=== PATIENT | female | born 1995 | race Caucasian/White ===

== ENCOUNTER 2016-04-18 17:12 | Emergency (ER) | payer BC ==
[~2016-04-18] VITALS: Wt 73.1 kg
--- NOTE | 2016-04-18 17:58 | ERD ---
ER Documentation Chief Complaint Date/Time DATE: 04/18/16 TIME: 17:56 Chief Complaint VAG BLEEDING X2 DAYS, PT 7 WKS PG, A0 HPI Patient is a 21 year old female who is with a LNMP 02/16/17. Patient states that she light spotting and low lower pelvic pain for 2 days. She states that she is not using a pad at this time. Denies fever or chills. Denies abdominal pain, nausea, vomiting or diarrhea. Denies constipation. Denies chest pain, shortness of breath or difficulty breathing. Denies leg pain or swelling. Denies recent surgeries ROS All systems reviewed and are negative except as per history of present illness. PMhx/Soc Medical and Surgical Hx: pt denies Medical Hx, pt denies Surgical Hx History of Surgery: No Anesthesia Reaction: No Hx Neurological Disorder: No Hx Respiratory Disorders: No Hx Cardiac Disorders: No Hx Psychiatric Problems: No Hx Miscellaneous Medical Probl: No Hx Alcohol Use: No Hx Substance Use: No Hx Tobacco Use: No Smoking Status: Never smoker Physical Exam Vitals Vital Signs Date Time Temp Pulse Resp B/P Pulse Ox O2 Delivery O2 Flow Rate FiO2 04/18/16 17:14 97.9 72 18 125/71 99 Physical Exam GENERAL: Well-developed, well-nourished female. Appears in no acute distress. HEAD: Normocephalic, atraumatic. EYES: Pupils are equally reactive bilaterally. EOMs grossly intact. No conjunctival erythema. ENT: Moist mucous membranes. No uvula deviation. No kissing tonsils. No exudates. NECK: Supple. No lymphadenopathy or thyromegaly. No meningismus. negative kernig. negative brudinski. LUNG: Clear to auscultation bilaterally. No rhonchi, wheezing, rales or coarse breath sounds. HEART: Regular rate and rhythm. No murmurs, rubs or gallops. ABDOMEN: No scars, ecchymosis or rashes noted. Soft, nontender, and nondistended. Positive bowel sounds in all four quadrants. No rebound tenderness , no guarding. (-) McBurneys point tenderness. No CVA tenderness. BACK: No midline tenderness. Extremities: Equal pulses bilaterally. No peripheral clubbing, cyanosis or edema. No unilateral leg swelling. NEUROLOGIC: Alert and oriented. Moving all four extremities. 5/5 strength in all extremities. Normal speech. Steady gait. SKIN: Normal color. Warm and dry. No rashes or lesions. Capillary refill < 2 seconds Result Diagram: 04/18/16 9177 Results 24 hrs Laboratory Tests Test 04/18/16 17:57 Basophils # 0.110^3/ul Basophils % 0.4% Beta HCG, Quantitative 79388.0mIU/ml Eosinophils # 0.210^3/ul Eosinophils % 1.5% Hematocrit 40.0% Hemoglobin 13.6g/dl Lymphocytes # 3.110^3/ul Lymphocytes % 26.0% Mean Corpuscular Hemoglobin 29.9pg Mean Corpuscular Hemoglobin Concent 34.1g/dl Mean Corpuscular Volume 87.7fl Mean Platelet Volume 8.7fl Monocytes # 0.710^3/ul Monocytes % 6.1% Neutrophils # 7.810^3/ul Neutrophils % 66.0% Nucleated Red Blood Cells # 0.010^3/ul Nucleated Red Blood Cells % 0.0/100WBC Platelet Count 18392^3/UL Red Blood Count 4.5610^6/ul Red Cell Distribution Width 12.9% Urine Bilirubin NEGATIVE Urine Clarity CLEAR Urine Color LT. YELLOW Urine Glucose NEGATIVE% Urine Hemoglobin 3+ Urine Ketones NEGATIVE Urine Leukocyte Esterase NEGATIVE Urine Microscopic RBC 2-5/HPF Urine Microscopic WBC 2-5/HPF Urine Nitrite NEGATIVE Urine Specific [place] <=1.005 Urine Squamous Epithelial Cells FEW Urine Total Protein NEGATIVE Urine Urobilinogen 0.2 E.U./dL Urine pH 5.5 White Blood Count 11.810^3/ul Procedures/MDM ER COURSE: I kept the patient and/or family informed of laboratory and diagnostic imaging results throughout the emergency room course. EKG, MONITORS, & DIAGNOSTIC IMAGING: [place] [id number] Radiology Main Line: [phone] DIAGNOSTIC IMAGING REPORT Patient: MISTY BRAN : 1995 Age: 21 Sex: F MR #: [id number] DOS: 04/18/16 1729 Ordering MD: ANABEL LOPEZ PA-C Location: [facility] Room/Bed: PROCEDURE: US OB. CLINICAL INDICATION: Vaginal the bleeding and TECHNIQUE: Transabdominal and transvaginal views of the pelvis are available for review. COMPARISON: No prior studies are available for comparison. FINDINGS: Intrauterine gestational sac, yolk sac and pole are noted with the following information: [place]-rump length: 0.36 cm heart rate: 97 bpm Gestational sac: 1.71 cm Ultrasound estimated gestational age: 6 weeks Percent of hypoechoic area measuring 1.2 cm is most consistent with a subchorionic hemorrhage. Corpus luteum cyst of in the right ovary is present and approximately 1.4 cm. Right ovarian size overall is measured at for 1 x 2 per a 6 x 1.7 cm. The left ovary is not visualized. There is no free fluid. RPTAT:HJJR IMPRESSION: 1. Single viable intrauterine with a measured gestational age of 6 weeks, the estimated date of delivery 12/12/2016. 2. Subchorionic hemorrhage of approximately 1.2 cm. 3. Corpus luteum cyst of the right ovary. Physician Ольга Date Time Electronically viewed and signed by Buddy Amaro Physician on 04/18/2016 19:13 JR/ CC: ANABEL LOPEZ PA-C LAB INTERPRETATION: CBC showed no evidence of systemic infection or severe anemia. UA showed no evidence of leukocytes, nitrites, shows 3+ hemoglobin Rh: A+ BHC.0 MEDICAL DECISION MAKING: This is a 21-year-old female who is who presents with vaginal bleeding and pelvic pain. Vital signs were reviewed. Patient is afebrile. Patient is not hypoxic. Patient is not toxic or ill-appearing. Patient likely has threatened . Low suspicion for ectopic , , molar , endometriosis, PID, cervicitis, septic , molar , HELLP syndrome , preeclampsia, eclampsia, placenta previa, placenta abruptia. Low suspicion for ovarian torsion, PID, tuboovarian abscess, ectopic , bowel obstruction, pyelonephritis, UTI, appendicitis, cervicitis, septic , molar , HELLP syndrome, preeclampsia, eclampsia, placenta previa, placenta abruptia. Her slightly elevated white count is likely due to . DISCHARGE: At this time, patient is stable for discharge and outpatient management with no new complaints during the ER course. Patient was sent home with rest and to follow-up with OB. Copy of labs and ultrasound was given to patient. Names of OB doctors in the area was also given to patient. Patient will be discharged home with instructions to recheck for new or worsening symptoms such as fever, nausea, weakness, LOC and to follow up with primary care in the next 1-2 days. Patient was advised to return to the ER for any new or worsening symptoms. Plan was discussed and patient and/or family understands and agrees. Home instructions were given. Departure Diagnosis: Primary Impression: Vaginal bleeding in patient at less than 20 weeks gestation Condition: Stable ANABEL LOPEZ PA-C Apr 18, 2016 17:58
[2016-04-18 18:12] LABS: BASOPHIL # 0.1 10^3/ul (0.0-0.1); BASOPHILS % 0.4 % (0.0-2.0); EOSINOPHILS # 0.2 10^3/ul (0.0-0.5); EOSINOPHILS % 1.5 % (0.0-7.0); HEMOGLOBIN 13.6 g/dl (12.0-16.0); LYMPHOCYTES # 3.1 10^3/ul (0.8-2.9); MEAN CORPUSCULAR HEMOGLOBIN 29.9 pg (29.0-33.0); MEAN CORPUSCULAR HGB CONC 34.1 g/dl (32.0-37.0); MEAN CORPUSCULAR VOLUME 87.7 fl (82.0-101.0); MEAN PLATELET VOLUME 8.7 fl (7.4-10.4); MONOCYTE # 0.7 10^3/ul (0.3-0.9); MONOCYTES % 6.1 % (0.0-11.0); NEUTROPHIL # 7.8 10^3/ul (1.6-7.5); PLATELET COUNT 288 10^3/UL (140-440); RED BLOOD COUNT 4.56 10^6/ul (4.20-5.40); RED CELL DISTRIBUTION WIDTH 12.9 % (11.5-14.5); UNCORRECTED WBC 11.8 10^3/ul (4.8-10.8); WHITE BLOOD COUNT 11.8 10^3/ul (4.8-10.8)
[2016-04-18 18:13] LABS: ADD UMIC YES; URINE BILIRUBIN (Dip) NEGATIVE (NEGATIVE); URINE BLOOD (Dip) 3+ (NEGATIVE); URINE COLOR LT. YELLOW (YELLOW); URINE GLUCOSE (Dip) NEGATIVE (NEGATIVE); URINE KETONES (Dip) NEGATIVE (NEGATIVE); URINE LEUKOCYTE ESTERASE (Dip) NEGATIVE (NEGATIVE); URINE NITRITE (Dip) NEGATIVE (NEGATIVE); URINE TOTAL PROTEIN (Dip) NEGATIVE (NEGATIVE); URINE UROBILINOGEN (Dip) 0.2 E.U./dL (0.1-1.0)
[2016-04-18 18:15] LABS: CONDITION 1
[2016-04-18 18:30] LABS: SQUAMOUS EPITHELIAL CELL,UR FEW
--- NOTE | 2016-04-18 19:13 | RADRPT ---
PROCEDURE: US OB. CLINICAL INDICATION: Vaginal the bleeding and TECHNIQUE: Transabdominal and transvaginal views of the pelvis are available for review. COMPARISON: No prior studies are available for comparison. FINDINGS: Intrauterine gestational sac, yolk sac and pole are noted with the following information: [place]-rump length:0.36 cm heart rate:97 bpm Gestational sac:1.71 cm Ultrasound estimated gestational age:6 weeks Percent of hypoechoic area measuring 1.2 cm is most consistent with a subchorionic hemorrhage. Corpus luteum cyst of in the right ovary is present and approximately 1.4 cm. Right ovari an size overall is measured at for 1 x 2 per a 6 x 1.7 cm. The left ovary is not visualized. There is no free fluid. RPTAT:HJJR IMPRESSION: 1. Single viable intrauterine with a measured gestational age of 6 weeks, the estimated d ate of delivery 12/12/2016. 2. Subchorionic hemorrhage of approximately 1.2 cm. 3. Corpus luteum cyst of the right ovary. Physician Ольга Date Time Electronically viewed and signed by Physician Ольга on 04/18/2016 19:13 /
== END 2016-04-18 19:36 | disposition home or self-care (01) ==
LOC: FTE 17:12
DX: O20.9 Hemorrhage in early pregnancy, unspecified (principal); R10.2 Pelvic and perineal pain; Z3A.01 Less than 8 weeks gestation of pregnancy
CPT/HCPCS: 36415; 76801; 76817; 81001; 81003; 84702; 85025; 86900; 86901

== ENCOUNTER 2016-04-19 20:23 | Day surgery (SDC) | payer BC ==
[~2016-04-19] VITALS: Ht 160 cm; Wt 73.6 kg
[2016-04-19 20:32] VITALS: Ht 160 cm; Wt 73.6 kg
[2016-04-19] MEDS ORDERED: ACETAMINOPHEN 500 MG TAB PO STA (21:23)
--- NOTE | 2016-04-19 21:36 | ERD ---
ER Documentation Chief Complaint Date/Time DATE: 04/19/16 TIME: 21:32 Chief Complaint vaginal bleeding/abd pain x 4 days, states 7 weeks HPI This is a 21-year-old female who presents to the emergency department today for vaginal bleeding and crampy lower abdominal pain. Patient states she is approximately 7 weeks . Patient states she was seen here yesterday and came back today because her bleeding was heavier and she was told to come back if she had heavier bleeding. She has not taken any Tylenol for the pain. Denies any fevers or chills, nausea or vomiting. ROS All systems reviewed and are negative except as per history of present illness. Allergies Allergies: Coded Allergies: No Known Drug Allergies (Verified Allergy, Unknown, 04/19/16) PMhx/Soc Medical and Surgical Hx: pt denies Medical Hx, pt denies Surgical Hx History of Surgery: No Anesthesia Reaction: No Hx Neurological Disorder: No Hx Respiratory Disorders: No Hx Cardiac Disorders: No Hx Psychiatric Problems: No Hx Miscellaneous Medical Probl: No Hx Alcohol Use: No Hx Substance Use: No Hx Tobacco Use: No Smoking Status: Never smoker Physical Exam Vitals Vital Signs Date Time Temp Pulse Resp B/P Pulse Ox O2 Delivery O2 Flow Rate FiO2 04/19/16 20:32 98.7 78 20 124/72 100 Physical Exam Const: No acute distress Head: Atraumatic Eyes: Normal Conjunctiva ENT: Normal External Ears, Nose and Mouth. Neck: Full range of motion..~ No meningismus. Resp: Clear to auscultation bilaterally Cardio: Regular rate and rhythm, no murmurs Abd: Soft, suprapubic tenderness., non distended. Normal bowel sounds no right lower quadrant pain. No tenderness at McBurney's. No left lower quadrant pain. Skin: No petechiae or rashes Neur: Awake and alert Psych: Normal Mood and Affect Result Diagram: 04/19/16214804/19/162148 Results 24 hrs Laboratory Tests Test 04/19/16 21:49 Alanine Aminotransferase (ALT/SGPT) 18IU/L Albumin 4.4g/dl Albumin/Globulin Ratio 1.41 Alkaline Phosphatase 58IU/L Anion Gap 17 Aspartate Amino Transf (AST/SGOT) 20IU/L Basophils # 0.010^3/ul Basophils % 0.3% Beta HCG, Quantitative 52628.0mIU/ml Blood Urea Nitrogen 12mg/dl Calcium Level 9.1mg/dl Carbon Dioxide Level 27mmol/L Chloride Level 103mmol/L Creatinine 0.60mg/dl Direct Bilirubin 0.00mg/dl Eosinophils # 0.110^3/ul Eosinophils % 1.0% Globulin 3.10g/dl Glucose Level 115mg/dl Hematocrit 39.1% Hemoglobin 13.2g/dl Indirect Bilirubin 0.0mg/dl Lymphocytes # 2.810^3/ul Lymphocytes % 20.0% Mean Corpuscular Hemoglobin 29.8pg Mean Corpuscular Hemoglobin Concent 33.8g/dl Mean Corpuscular Volume 88.1fl Mean Platelet Volume 8.5fl Monocytes # 0.910^3/ul Monocytes % 6.2% Neutrophils # 10.010^3/ul Neutrophils % 72.5% Nucleated Red Blood Cells # 0.010^3/ul Nucleated Red Blood Cells % 0.0/100WBC Platelet Count 13663^3/UL Potassium Level 4.2mmol/L Red Blood Count 4.4310^6/ul Red Cell Distribution Width 12.5% Sodium Level 143mmol/L Total Bilirubin 0.0mg/dl Total Protein 7.5g/dl White Blood Count 13.810^3/ul Current Medications Medications (Trade) Dose Ordered Sig/Chrissie Route PRN Reason Start Time Stop Time Status Last Admin Dose Admin Acetaminophen (Tylenol Tab) 500 mg ONCE STAT PO 04/19/16 21:23 04/19/16 21:25 DC 04/19/16 22:16 Cefazolin Sodium (Ancef) 2 gm ONCE ONCE IV 04/20/16 00:00 04/20/16 00:01 DC 04/20/16 00:40 Procedures/MDM This is a 21-year-old female who presents to the emergency department today for vaginal bleeding. Patient indicates she is a proximal 7 weeks . Patient was seen here yesterday in the emergency department and had a full OB workup at that time. His laboratory work at that time showed a mildly elevated white blood cell count. Her UA was negative for infection. Her ultrasound showed an intrauterine gestational sac yolk sac and pole. There is no free fluid. There was a corpus luteum cyst in the right ovary. Patient had a hypoechoic area measuring 1.2 cm consistent with a subchorionic hemorrhage. Patient's beta quant was 07897.0. Her Rh status was A positive. Patient continued to have a significant amount of vaginal bleeding and therefore the laborist was called. Dr. Burks saw and evaluated the patient and did a pelvic exam. Patient cervix was open and a clot was removed Laboratory work showed a mildly elevated white blood cell count. Her platelets are within normal limits. She is not anemic. Her hemoglobin and hematocrit are stable at this time. Electrolytes are within normal limits. Glucose is low [place] [address] Patient is Rh+ and there is no indication for RhoGam at this time. Patient's quant is decreasing from yesterday this is concerning for a failed . I did order an ultrasound after the patient was evaluated by Dr. Burks. Ultrasound shows a gestational sac is no longer identified raising suspicion for missed . There is thickened endometrium with apparent internal vascularity raise suspicion for retained products of conception. There is no adnexal mass or free fluid. Patient was given Tylenol here in the emergency department. Packed red blood cells were ordered for the patient. Dr. Burks discussed with the patient and her family doing a D&C here in the emergency department given the amount that she was bleeding versus outpatient therapy and patient has requested a D&C here in the emergency room. Patient was given 2 g of Ancef. I have also ordered packed red blood cells. Consent was obtained. Patient will go to the OR. I discussed the patient with Dr. Wheatley and he is in understanding of the plan. . Departure Diagnosis: Primary Impression: Missed Condition: SHONA Omer PA-C Apr 19, 2016 21:36
[2016-04-19 22:47] LABS: BASOPHILS % 0.3 % (0.0-2.0); EOSINOPHILS # 0.1 10^3/ul (0.0-0.5); HEMATOCRIT 39.1 % (37.0-47.0); HEMOGLOBIN 13.2 g/dl (12.0-16.0); LYMPHOCYTES # 2.8 10^3/ul (0.8-2.9); MEAN CORPUSCULAR HEMOGLOBIN 29.8 pg (29.0-33.0); MEAN CORPUSCULAR HGB CONC 33.8 g/dl (32.0-37.0); MEAN CORPUSCULAR VOLUME 88.1 fl (82.0-101.0); MEAN PLATELET VOLUME 8.5 fl (7.4-10.4); MONOCYTE # 0.9 10^3/ul (0.3-0.9); MONOCYTES % 6.2 % (0.0-11.0); NEUTROPHILS % 72.5 % (39.0-77.0); PLATELET COUNT 280 10^3/UL (140-440); RED BLOOD COUNT 4.43 10^6/ul (4.20-5.40); RED CELL DISTRIBUTION WIDTH 12.5 % (11.5-14.5); UNCORRECTED WBC 13.8 10^3/ul (4.8-10.8); WHITE BLOOD COUNT 13.8 10^3/ul (4.8-10.8)
[2016-04-19 22:53] LABS: ALBUMIN 4.4 g/dl (3.3-4.9)
[2016-04-19 22:54] LABS: POTASSIUM 4.2 mmol/L (3.5-5.1)
[2016-04-19 22:55] LABS: CONDITION 1
[2016-04-19 22:56] LABS: ALBUMIN/GLOBULIN RATIO 1.41; CREATININE 0.6 mg/dl (0.44-1.00); TOTAL PROTEIN 7.5 g/dl (6.1-8.1)
[2016-04-19 22:57] LABS: CALCIUM 9.1 mg/dl (8.4-10.2)
[2016-04-20] VITALS (12 sets, daily range): BP systolic 104–120; BP diastolic 51–66; PULSE 70–86; RESP 11–23
[2016-04-20] MEDS ORDERED: CEFAZOLIN 1 GM INJ IV ONE
--- NOTE | 2016-04-20 00:26 | RADRPT ---
PROCEDURE: Ultrasound pelvis CLINICAL INDICATION: Vaginal Bleed () TECHNIQUE: Multiple bledsoe scale and color Doppler images of the pelvis were obtained transabdominal ly and transvaginally. Images were reviewed PACS workstation COMPARISON: None FINDINGS: The uterus is identified, measuring 8.0 x 3.9 x 5.0 cm. The endometrial canal appears thickened, me asuring 17 mm . There is apparent flow within the endometrial contents seen on a few images. The right ovary measures 3.7 x 1.7 x 2.6 cm. The left ovary is not well seen. There is unremarkabl e right ovary echotexture with maintained vascular flow. There is no evidence of free fluid. There is no abnormal adnexal mass. IMPRESSION: 1. A gestational sac is no longer identified, raising suspicion for missed . Correlation w ith serial beta HcG levels recommended. 2. Thickened endometrium, with apparent internal vascularity, raising suspicion for retained produc ts of conception. 3. No adnexal mass or free fluid. RPTAT: HBST .Benjamin Esparza MD, MD Date Time Electronically viewed and signed by .Benjamin Esparza MD, on 04/20/2016 00:26 .T/
[2016-04-20] MEDS ORDERED: FENTAnyl 50 MCG/ML VIAL IV PRN ×3 (02:30)
[2016-04-20] MEDS ORDERED: METOCLOPRAMIDE 10 MG INJ IV PRN (02:30)
[2016-04-20] MEDS ORDERED: hydrALAzine 20 MG INJ IV PRN (02:30)
[2016-04-20] MEDS ORDERED: HYDROmorphONE (0.2 MG/ML) 10ML SYG IV PRN ×3 (02:30)
[2016-04-20] MEDS ORDERED: MEPERIDINE 25 MG INJ IV PRN (02:30)
[2016-04-20] MEDS ORDERED: LABETALOL HCL 20MG INJ IV PRN (02:30)
[2016-04-20] MEDS ORDERED: ONDANSETRON 4 MG INJ IV PRN (02:30)
[2016-04-20] MEDS ORDERED: PROPOFOL 20 ML ONE (03:04)
[2016-04-20] MEDS ORDERED: LIDOCAINE 2% (SDV) 5 ML INJ ONE (03:04)
[2016-04-20] MEDS ORDERED: FENTAnyl 50 MCG/ML VIAL ONE (03:04)
[2016-04-20] MEDS ORDERED: DEXAMETHASONE 4 MG/ML 1 ML INJ ONE (03:14)
[2016-04-20] MEDS ORDERED: ONDANSETRON 4 MG INJ ONE (03:15)
[2016-04-20] MEDS ORDERED: KETOROLAC 30 MG INJ ONE (03:29)
[2016-04-20] MEDS ORDERED: OXYTOCIN 10 UNIT INJ ONE (03:29)
--- NOTE | 2016-04-20 03:38 | HP ---
DATE OF ADMISSION: 04/19/2016 HISTORY OF PRESENT ILLNESS: Rosemarie Adkins is a 21-year-old, 1 with single intrauterine at approximately 6 1/7 weeks complaining of severe vaginal bleeding. She states had minimal vaginal bleeding in last 3 days , presented to emergency department of [facility] yesterday. At that time, her hemoglobin was 13.6, hematocrit 40, platelet count 288, blood type A positive. An ultrasound performed which revealed a single viable intrauterine at 6 weeks with estimated date of delivery 12/12/2016. There was a subchorionic hemorrhage of approximately 1.2 cm and corpus luteal cyst at the right ovary. She discharged home in stable condition. PAST MEDICAL HISTORY: None. PAST SURGICAL HISTORY: None. FAMILY HISTORY: Negative. She denies breast, uterine, ovarian, and/or colon cancer in her family. SOCIAL HISTORY: She is single, father of baby is supportive and is accompanying the patient. She has good family support. Her mother and her father are in hospital and very supportive. She denies tobacco, alcohol, or drug abuse. 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 She denies sexually transmitted infection, PID, genital herpes, or abnormal Pap smear. OB HISTORY: Primigravida. PHYSICAL EXAMINATION: VITAL SIGNS: Blood pressure 110/67, pulse rate 86/min, respiratory rate 18/min , temperature 98.1, and an O2 saturation 98%. GENERAL: She is comfortable, no acute distress, appropriate mood and affect. She is nervous. HEART: Regular rhythm and rate. No murmur. LUNGS: Clear to auscultation bilateral. ABDOMEN: Soft, nontender. FLANKS: No CVA tenderness bilaterally. EXTREMITIES: No edema, varicose veins, thigh or calf tenderness bilateral. PELVIC: External genitalia: moderate amount of blood all over vulva and upper thigh. Vagina moderate amount of bleeding. Cervix is open and some tissue is expelling from cervix. The uterus is 8 weeks, mobile, anteverted. Adnexa with no palpable masses bilaterally. Labs: CBC: Hemoglobin 13.2, hematocrit 39.1, platelet count 280. Blood type: A positive ASSESSMENT AND PLAN: A 21-year-old 1 with incomplete . The patient and her family would like to have an ultrasound. An ultrasound was performed which revealed no further gestational sac is seen. The endometrium is thickened with apparent internal vascularity raising suspicion for retained product of conception. No adnexal mass or free fluid seen. Treatment options with medical treatment (Cytotec) versus suction curettage discussed in detail with patient and family member. They expressed understanding. All of their questions were answered. I gave her time to think her options. She would like to have suction curettage. Risks including but not limited to bleeding, infection, uterine perforation, injury to other organs, bowel, bladder, ureter, vessels, nerves, if a uterine perforation or tears, scar formation, need for blood transfusion in the life threatening situation, blood transfusion related infection, and risk of anesthesia discussed in detail with the patient and her family. All express understanding. She would like to proceed with dilation and suction curettage. The patient signed the informed consent form. Dictated By: LINDA WALDEN/ESTRELLA Conf#: [id number] DID#: [id number] MTDTamera
--- NOTE | 2016-04-20 06:11 | OPR ---
DATE OF OPERATION: 04/20/2016 SURGEON: Linda Rangel MD BROOM MAN: None. ANESTHESIA: General endotracheal anesthesia. ANESTHESIOLOGIST: Tyrell Amaral MD PREOPERATIVE DIAGNOSIS: Incomplete . POSTOPERATIVE DIAGNOSES: Incomplete . PROCEDURE PERFORMED: Dilation and suction curettage. COMPLICATIONS: None. CONDITION: Stable. SPECIMEN: Product of conception. BLOOD LOSS: 50 mL. EXAMINATION UNDER ANESTHESIA: External genitalia within normal limits. Vagina with some bleeding. Cervix fingertip open. Uterus 8 weeks. Adnexa with no palpable masses bilaterally. INDICATION: A 21-year-old 1 with incomplete and severe vaginal bleeding. Treatment options including medical treatment with Cytotec and dilation with suction curette were discussed with the patient and her family. All expressed understanding. All of their questions answered. The patient would like to have dilation and suction curettage. Risk of surgery including but not limited to bleeding, infection, uterine perforation, injury to other organs including bowel, bladder, ureter, vessels, nerves if uterine rupture occurs, blood transfusion, blood transfusion related infection, risk of anesthesia, and scar formation discussed in detail with the patient and her family. She signed the informed consent. PROCEDURE IN DETAIL: The patient was identified and the procedure verified. She was given general anesthesia without difficulty and placed in modified dorsal lithotomy position. The patient was examined under general anesthesia with the above findings. The patient was then prepped and draped in normal sterile fashion. The bladder was drained by insertion of Burton catheter. One hundred mL clear urine drained. Then, a weighted speculum was used to visualize the cervix which was grasped on the anterior lip with a single tooth tenaculum. Then, the cervix dilated to #10. A #9 suction curette was introduced into the uterine cavity. Suction curettage was performed in a 360 degree fashion until no further tissue was obtained. There was approximately 80 mL bleeding with tissue. Then, a sharp curette was gently introduced into uterine cavity and curettage performed in all quadrants. Again, the suction curette was introduced to remove the remaining clot and debris. No further tissue or clot was obtained. There were about 50 grams of tissue which were sent to pathology. Tenaculum removed. There was no bleeding from the tenaculum site. Then speculum was removed. The patient tolerated the procedure well. She was extubated in the operating room and transferred to the recovery room in stable condition. Dictated By: LINDA WALDEN/ESTRELLA Conf#: [id number] DID#: [id number] MTDD
[2016-04-20] MEDS ORDERED: CEFAZOLIN 1 GM INJ ONE (07:00)
== END 2016-04-20 05:00 | disposition home or self-care (01) ==
LOC: FTE 20:23 → SDS 04-20 02:27
PROVIDERS: ATTEND Obstetrics & Gynecology
DX: O03.4 Incomplete spontaneous abortion without complication (principal)
CPT/HCPCS: 59812; 76801; 76817; 80053; 84702; 85025; 86850; 86900; 86901; 86920; 88305; J0690; J1100; J1885; J2405; J2590; J3010; Z7512; Z7610